=== PATIENT | female | born 1990 | race Caucasian/White ===

== ENCOUNTER → 2017-09-21 | Outpatient (CLI) | payer OTHER | END | disposition home or self-care (01) | LOC: C.PAPS 11:20 | PROVIDERS: ATTEND Physician Assistant | DX: Z12.4 Encounter for screening for malignant neoplasm of cervix (principal) ==

== ENCOUNTER 2017-10-05 02:47 | Emergency (ER) | payer OTHER ==
[~2017-10-05] VITALS: Ht 162.6 cm; Wt 55.0 kg
[2017-10-05] MEDS ORDERED: LORAZEPAM 2 MG/ML 1 ML VIAL IM STA (02:57)
[2017-10-05] MEDS ORDERED: HALOPERIDOL LACTATE 5 MG/ML 1 ML VIAL IM STA (02:57)
[2017-10-05 03:21] LABS: ALBUMIN 3.9 gm/dl (3.4-5.0); ALT/SGPT 22 U/L (12-78); AST/SGOT 18 U/L (15-37); BLOOD UREA NITROGEN 9 mg/dl (7-18); CALCIUM 8.7 mg/dl (8.5-10.1); CARBON DIOXIDE 21 mmol/L (21-32); CREATININE 0.77 mg/dl (0.60-1.20); GLUCOSE 101 mg/dl (70-99); POTASSIUM 3.3 mmol/L (3.5-5.1); SODIUM 139 mmol/L (136-145)
[2017-10-05 03:25] LABS: BASO % 0.9 %; BASO ABS # 0.07 K/uL (0-0.2); EOS % 1.9 %; EOS ABS # 0.14 K/uL (0-0.5); HEMATOCRIT 42.3 % (37-47); IG# 0.03 K/uL (0.00-0.02); LYMPH % 25.5 %; LYMPH ABS # 1.88 K/uL (1.2-3.4); MEAN CELL VOLUME 90.4 fL (80-100); MEAN CORPUSCULAR HEMOGLOBIN 32.1 pg (25-34); MEAN CORPUSCULAR HGB CONC 35.5 g/dl (32-36); MEAN PLATELET VOLUME 9.1 fL (7.4-10.4); MONO ABS # 0.59 K/uL (0.11-0.59); NEUT % 63.3 %; NEUT ABS # 4.67 K/uL (1.4-6.5); PLATELET COUNT 258 K/uL (130-400); RED CELL DISTRIBUTION WIDTH CV 12.1 % (11.5-14.5); RED CELL DISTRIBUTION WIDTH SD 39.7 fL (36.4-46.3); WHITE BLOOD COUNT 7.38 K/uL (4.8-10.8)
[2017-10-05 03:30] VITALS: Ht 162.6 cm; Wt 55.0 kg
[2017-10-05 03:32] LABS: ALKALINE PHOSPHATASE 57 U/L (45-117); TOTAL PROTEIN 7.9 gm/dl (6.4-8.2)
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
[2017-10-05 10:00] VITALS: BP 108/50; PULSE 76; O2SAT 98
--- NOTE | 2017-10-05 11:04 | EMERGENCY ROOM VISIT NOTE ---
ED Visit Note The patient arrives emergency department intoxicated with a 302 petition. This was signed out to me around 7:[address] Negron. The patient was reassessed around 11 AM. She is not suicidal or homicidal. She does not recall much of the events last night. She denies any previous suicidal history or mental health history. The petition was reviewed. It was denied. The patient is felt to be stable for discharge.
== END 2017-10-05 11:47 | disposition home or self-care (01) ==
LOC: EDBD 02:47 → C.EDA 02:48
DX: T14.91XA Suicide attempt, initial encounter (principal); X83.8XXA Intentional self-harm by other specified means, initial encounter; F10.920 Alcohol use, unspecified with intoxication, uncomplicated